=== PATIENT | male | born 1955 | race Caucasian/White ===

== ENCOUNTER → 2018-06-21 | Outpatient (CLI) | payer OTHER ==
--- NOTE | 2018-06-25 17:26 | MR ---
EXAMINATION TYPE: MR brain wo/w con DATE OF EXAM: 06/21/2018 COMPARISON: CT brain Eusebio Forte dated 02/11/2016 HISTORY: Brain lesion TECHNIQUE: Multiplanar, multisequence images of the brain and brainstem is performed without and with IV contras t, utilizing 10 mL intravenous Gadavist . FINDINGS: Craniovertebral junction is normal. The pituitary as visualized is unremarkable. Diffusion-weighted imaging is performed. No suspicious hyperintensity to suggest an acute ischemic ar eas evident There is a hyperintense T2 area within the left centrum semiovale extending from nearly the ventricle to the sulci. This is hypointense on T1-weighted sequences and has some intermediate signal on the i nversion recovery weighted sequences. This is nonenhancing There is increased T2 signal adjacent whic h may be some minimal adjacent edema.. This is estimated to measure 1.4 x 1.1 cm on T2-weighted imagi ng. This has some intermediate internal signal and surrounding low inversion recovery signal which c ould be some hemosiderin staining. This was not present on the comparison CT of 02/11/2016. Exam was compared to CT dated 02/11/2016. No prior MRIs and no additional CT examinations were able to be loca brenden. Addendum report can be issued if additional imaging has been performed and can be provided for c omparison. Additionally, there is an enhancing lesion in the extra-axial space of the right parietal lobe which may be an old meningioma present previously. This has some enhancement. No additional suspicious enhancement is evident. No additional abnormal lesions are identified. Ventricles and sulci appear appropriate for the patient age. IMPRESSION: 1. New lesion in the left centrum semiovale extending towards the sulcus at the vertex. This could be old posttraumatic effect such as hemorrhage. Neoplasm, such as ganglioglioma could be considered. Significant Vasogenic edema to suggest more aggressive tumors are not identified. Recommend CT brain to evaluate for calcification. 2. Probable old meningioma, present on CT examination, right vertex.
== END | disposition home or self-care (01) ==
LOC: RADMRIMAIN 19:46
PROVIDERS: ATTEND Family Medicine
DX: G93.9 Disorder of brain, unspecified (principal); G93.6 Cerebral edema
CPT/HCPCS: 82565; 84520; 70553; 36415; A9581

== ENCOUNTER → 2018-07-12 | Outpatient (CLI) | payer OTHER ==
--- NOTE | 2018-07-12 14:51 | CT ---
EXAMINATION TYPE: CT brain w con DATE OF EXAM: 07/12/2018 COMPARISON: MRI brain June 21, 2018. Outside CT brain February 11, 2016 HISTORY: Disorder of brain, unspecified per order. CT DLP: 1329 mGycm. Automated Exposure Control for Dose Reduction was Utilized. CONTRAST: CT scan of the head is performed with IV Contrast, patient injected with 100 ml mL of Isovue 300. FINDINGS: There is redemonstration of homogeneous enhancing 1.2 cm high right frontal meningioma axial image 54 not significantly changed from prior CT. Area of concern on recent MRI left posterior frontal lobe c entrum semiovale shows no calcification, area of focal encephalomalacia is felt present this is new f rom the 2016 CT. No midline shift is seen. Ventricles and sulci are within normal limits in size. No new enhancing masses are present. Globes are intact bilaterally. Mild mucosal thickening anterior eth moid sinuses bilaterally is seen. IMPRESSION: Area of concern on recent MRI is felt to reflect focal area of encephalomalacia or old infarct.
== END | disposition home or self-care (01) ==
LOC: RADCTMAIN 14:05
PROVIDERS: ATTEND Family Medicine
DX: G93.9 Disorder of brain, unspecified (principal)
CPT/HCPCS: 70460; Q9967

== ENCOUNTER → 2018-09-30 | Outpatient (CLI) | payer OTHER ==
--- NOTE | 2018-09-30 15:29 | ECHOF ---
Referral Reason:Z86.73 HX OF STROKE MEASUREMENTS -------- HEIGHT: 182.9 cm WEIGHT: 111.1 kg BP: IVSd: 1.5 cm (0.6 - 1.1) LVIDd: 4.5 cm (3.9 - 5.3) LVPWd: 1.1 cm (0.6 - 1.1) IVSs: 1.5 cm LVIDs: 3.1 cm LVPWs: 1.6 cm LA Diam: 3.7 cm (2.7 - 3.8) RVIDd: 2.7 cm (< 3.3) EPSS: 0.4 cm MV E Jon: 0.43 m/s MV DecT: 289 ms MV A Jon: 0.65 m/s MV E/A Ratio: 0.65 RAP: 5.00 mmHg RVSP: 14.56 mmHg MV EF SLOPE: 104.92 mm/s (70 - 150) MV EXCURSION: 19.44 mm (> 18.000) FINDINGS -------- Sinus rhythm. This was a techncally difficult study with suboptimal views, , Definity utilized for enhancement of i mages. The left ventricular size is normal. There is moderate concentric left ventricular hypertrophy. O verall left ventricular systolic function is normal with, an EF between 55 - 60 %. The right ventricle is normal in size. The left atrial size is normal. The right atrial size is normal. Lumason used The aortic valve is trileaflet, and appears structurally normal. No aortic stenosis or regurgitation. Mild mitral annular calcification present. Mild mitral regurgitation is present. Mild tricuspid regurgitation present. There is no evidence of pulmonary hypertension. The right v entricular systolic pressure, as measured by Doppler, is 14.56mmHg. The pulmonic valve was not well visualized. The aortic root size is normal. There is no pericardial effusion. CONCLUSIONS -------- 1. This was a techncally difficult study with suboptimal views, , Definity utilized for enhancement o f images. 2. The left ventricular size is normal. 3. There is moderate concentric left ventricular hypertrophy. 4. Overall left ventricular systolic function is normal with, an EF between 55 - 60 %. 5. The right ventricle is normal in size. 6. The left atrial size is normal. 7. The right atrial size is normal. 8. Lumason used 9. The aortic valve is trileaflet, and appears structurally normal. No aortic stenosis or regurgitati on. 10. Mild mitral annular calcification present. 11. Mild mitral regurgitation is present. 12. Mild tricuspid regurgitation present. 13. There is no evidence of pulmonary hypertension. 14. The right ventricular systolic pressure, as measured by Doppler, is 14.56mmHg. 15. The pulmonic valve was not well visualized. 16. The aortic root size is normal. 17. There is no pericardial effusion. ULTRASOUND TECHNOL: Berta Flores RDCS
== END | disposition home or self-care (01) ==
LOC: RADECHMAIN 08:37
PROVIDERS: ATTEND Psychiatry & Neurology Neurology
DX: I08.1 Rheumatic disorders of both mitral and tricuspid valves (principal); Z86.73 Personal history of transient ischemic attack (TIA), and cerebral infarction without residual deficits
CPT/HCPCS: C8929; Q9950; 93306

== ENCOUNTER → 2018-12-18 | Outpatient (CLI) | payer OTHER | END | disposition home or self-care (01) | LOC: RADNMMAIN 09:16 | PROVIDERS: ATTEND Family Medicine | DX: Z53.9 Procedure and treatment not carried out, unspecified reason (principal) ==

== ENCOUNTER → 2018-12-26 | Outpatient (CLI) | payer OTHER ==
[~2018-12-26] MED LIST: DOBUTamine DRIP for NUC MED 500 MG in DEXTROSE/WATER 1 250ML.BAG IV ONE
--- NOTE | 2018-12-26 13:37 | ECHOS ---
STRESS ECHOCARDIOGRAM DOBUTAMINE STRESS ECHO DATE OF SERVICE: 12/26/2018 INDICATIONS: Suboptimal SE. MEDICATIONS: BASELINE HEART RATE: 65 BASELINE BLOOD PRESSURE: 153/79 MAXIMUM HEART RATE: 128 MAXIMUM BLOOD PRESSURE: 119/36 85% MPHR: 135 100% MPHR: 159 METS: MAXIMUM STAGE REACHED: TOTAL EXERCISE TIME: CLINICAL INFORMATION: A dobutamine stress echocardiographic study was performed. Peak heart rate of 128 was achieved. Maximum blood pressure of 119/36 mmHg was noted. The resting EKG shows normal sinus rhythm with normal FL interval and QRS duration and normal ST-T waves. No ST-segment depression suggestive of ischemia is noted. The baseline echocardiographic images reveal normal left ventricular chamber size with normal left ventricular systolic function. At the peak dose of dobutamine infusion, normal increase in the wall thickness and contractility is noted. FINAL IMPRESSION: This dobutamine stress echocardiographic study is negative for stress-induced ischemia. EKG portion of the stress test is not suggestive of ischemia. MMODL / IJN: [id number] /
== END | disposition home or self-care (01) ==
LOC: RADNMMAIN 09:23
PROVIDERS: ATTEND Family Medicine
DX: R07.89 Other chest pain (principal)
CPT/HCPCS: C8930; J1250; Q9950; 93351

== ENCOUNTER → 2019-01-28 | Outpatient (CLI) | payer OTHER | LOC: CPPFTMAIN 13:21 | PROVIDERS: ATTEND Family Medicine | DX: R06.02 Shortness of breath (principal) | CPT/HCPCS: 94060; 94726; 94729 ==

== ENCOUNTER 2019-03-28 23:49 | Emergency (ER) | payer MEDICARE, OTHER ==
[2019-03-29 00:09] VITALS: RESP 18; TEMP 97.1
--- NOTE | 2019-03-29 00:49 | ED ---
Abdominal Pain HPI - General Chief Complaint: Abdominal Pain Stated Complaint: Abdominal Pain Time Seen by Provider: 03/28/19 23:56 Source: patient, EMS Mode of arrival: EMS - History of Present Illness MD Complaint: abdominal pain Onset/Timin -: hour(s) Location: diffuse Radiation: none Migration to: no migration Severity: moderate Quality: other (Squeezing) Consistency: constant Improves With: nothing Worsens With: nothing Associated Symptoms: denies other symptoms - Related Data Previous Rx's Medication Instructions Recorded Dicyclomine [Bentyl] 20 mg PO QID #15 tablet 03/29/19 Allergies Allergy/AdvReac Type Severity Reaction Status Date / Time acetaminophen [From [facility]] Allergy Nausea & Verified 03/29/19 00:05 Vomiting hydrocodone [From [facility]] Allergy Nausea & Verified 03/29/19 00:05 Vomiting Review of Systems ROS Statement: Those systems with pertinent positive or pertinent negative responses have been documented in the HPI. ROS Other: All systems not noted in ROS Statement are negative. Constitutional: Denies: fever, chills Respiratory: Denies: cough, dyspnea Cardiovascular: Denies: chest pain, palpitations, edema Gastrointestinal: Reports: abdominal pain. Denies: nausea, vomiting, diarrhea, constipation, melena, hematochezia Genitourinary: Denies: dysuria, hematuria, testicular pain, testicular mass Musculoskeletal: Denies: back pain Skin: Denies: rash Past Medical History Past Medical History: Hypertension History of Any Multi-Drug Resistant Organisms: None Reported Past Surgical History: Orthopedic Surgery Additional Past Surgical History / Comment(s): Spleenectomy Past Psychological History: Depression Smoking Status: Current every day smoker Past Alcohol Use History: Occasional Past Drug Use History: None Reported General Exam General appearance: alert, in no apparent distress Head exam: Present: atraumatic, normocephalic Eye exam: Present: normal appearance. Absent: scleral icterus, conjunctival injection Respiratory exam: Present: normal lung sounds bilaterally. Absent: respiratory distress, wheezes, rales, rhonchi, stridor Cardiovascular Exam: Present: regular rate, normal rhythm, normal heart sounds. Absent: systolic murmur, diastolic murmur, rubs, gallop GI/Abdominal exam: Present: soft. Absent: distended, tenderness, guarding, rebound, rigid, mass Extremities exam: Present: normal inspection, normal capillary refill. Absent: pedal edema, calf tenderness Back exam: Present: normal inspection. Absent: CVA tenderness (R), CVA tenderness (L) Neurological exam: Present: alert Skin exam: Present: warm, dry, intact, normal color. Absent: rash Course Vital Signs 03/29/19 00:00 Temperature 97.1 F L Pulse Rate 69 Respiratory 18 Rate Blood Pressure 141/91 O2 Sat by Pulse 95 Oximetry Medical Decision Making - Lab Data Result diagrams: 03/29/19 01:06 03/29/19 01:06 Lab Results 03/29/19 03/29/19 03/29/19 Range/Units 01:06 01:06 01:06 WBC 12.8 H (3.8-10.6) k/uL RBC 4.03 L (4.30-5.90) m/uL Hgb 13.0 (13.0-17.5) gm/dL Hct 40.0 (39.0-53.0) % MCV 99.3 (80.0-100.0) fL MCH 32.2 (25.0-35.0) pg MCHC 32.5 (31.0-37.0) g/dL RDW 14.3 (11.5-15.5) % Plt Count 241 (150-450) k/uL Neutrophils % 46 % Lymphocytes % 36 % Monocytes % 7 % Eosinophils % 6 % Basophils % 1 % Neutrophils # 5.9 (1.3-7.7) k/uL Lymphocytes # 4.7 (1.0-4.8) k/uL Monocytes # 0.9 (0-1.0) k/uL Eosinophils # 0.7 (0-0.7) k/uL Basophils # 0.1 (0-0.2) k/uL Macrocytosis Slight Sodium 141 (137-145) mmol/L Potassium 4.4 (3.5-5.1) mmol/L Chloride 111 H (98-107) mmol/L Carbon Dioxide 24 (22-30) mmol/L Anion Gap 6 mmol/L BUN 21 H (9-20) mg/dL Creatinine 1.11 (0.66-1.25) mg/dL Est GFR (CKD-EPI)AfAm 83 (>60 ml/min/1.73 sqM) Est GFR (CKD-EPI)NonAf 72 (>60 ml/min/1.73 sqM) Glucose 114 H (74-99) mg/dL Plasma Lactic Acid Issac 1.0 (0.7-2.0) mmol/L Calcium 9.1 (8.4-10.2) mg/dL Total Bilirubin 0.3 (0.2-1.3) mg/dL AST 24 (17-59) U/L ALT 49 (21-72) U/L Alkaline Phosphatase 70 (38-126) U/L Total Protein 6.2 L (6.3-8.2) g/dL Albumin 3.6 (3.5-5.0) g/dL Amylase 49 (30-110) U/L Lipase 50 (23-300) U/L Urine Color Urine Appearance (Clear) Urine pH (5.0-8.0) Ur Specific Primrose (1.001-1.035) Urine Protein (Negative) Urine Glucose (UA) (Negative) Urine Ketones (Negative) Urine Blood (Negative) Urine Nitrite (Negative) Urine Bilirubin (Negative) Urine Urobilinogen (<2.0) mg/dL Ur Leukocyte Esterase (Negative) 03/29/19 Range/Units 02:00 WBC (3.8-10.6) k/uL RBC (4.30-5.90) m/uL Hgb (13.0-17.5) gm/dL Hct (39.0-53.0) % MCV (80.0-100.0) fL MCH (25.0-35.0) pg MCHC (31.0-37.0) g/dL RDW (11.5-15.5) % Plt Count (150-450) k/uL Neutrophils % % Lymphocytes % % Monocytes % % Eosinophils % % Basophils % % Neutrophils # (1.3-7.7) k/uL Lymphocytes # (1.0-4.8) k/uL Monocytes # (0-1.0) k/uL Eosinophils # (0-0.7) k/uL Basophils # (0-0.2) k/uL Macrocytosis Sodium (137-145) mmol/L Potassium (3.5-5.1) mmol/L Chloride (98-107) mmol/L Carbon Dioxide (22-30) mmol/L Anion Gap mmol/L BUN (9-20) mg/dL Creatinine (0.66-1.25) mg/dL Est GFR (CKD-EPI)AfAm (>60 ml/min/1.73 sqM) Est GFR (CKD-EPI)NonAf (>60 ml/min/1.73 sqM) Glucose (74-99) mg/dL Plasma Lactic Acid Issac (0.7-2.0) mmol/L Calcium (8.4-10.2) mg/dL Total Bilirubin (0.2-1.3) mg/dL AST (17-59) U/L ALT (21-72) U/L Alkaline Phosphatase (38-126) U/L Total Protein (6.3-8.2) g/dL Albumin (3.5-5.0) g/dL Amylase (30-110) U/L Lipase (23-300) U/L Urine Color Yellow Urine Appearance Clear (Clear) Urine pH 5.5 (5.0-8.0) Ur Specific Primrose 1.023 (1.001-1.035) Urine Protein Negative (Negative) Urine Glucose (UA) Negative (Negative) Urine Ketones Negative (Negative) Urine Blood Negative (Negative) Urine Nitrite Negative (Negative) Urine Bilirubin Negative (Negative) Urine Urobilinogen <2.0 (<2.0) mg/dL Ur Leukocyte Esterase Negative (Negative) Disposition Clinical Impression: Abdominal pain Disposition: HOME SELF-CARE Condition: Good Instructions (If sedation given, give patient instructions): Abdominal Pain (ED) Prescriptions: Dicyclomine [Bentyl] 20 mg PO QID #15 tablet Is patient prescribed a controlled substance at d/c from ED?: No Referrals: Bobby Lawler MD [Primary Care Provider] - 1-2 days Bre Gunter MD [STAFF PHYSICIAN] - 1-2 days
[2019-03-29 01:16] LABS: Basophils # (A) 0.1 k/uL (0-0.2); Basophils % (A) 1 %; Eosinophils # (A) 0.7 k/uL (0-0.7); Eosinophils % (A) 6 %; Lymphocytes # (A) 4.7 k/uL (1.0-4.8); Lymphocytes % (A) 36 %; MCH 32.2 pg (25.0-35.0); MCHC 32.5 g/dL (31.0-37.0); MCV 99.3 fL (80.0-100.0); Macrocytosis Slight; Mean Platelet Volume 6.9; Monocytes # (A) 0.9 k/uL (0-1.0); Monocytes % (A) 7 %; Neutrophils # (A) 5.9 k/uL (1.3-7.7); Neutrophils % (A) 46 %; Platelet Count 241 k/uL (150-450); RBC 4.03 m/uL (4.30-5.90); RDW 14.3 % (11.5-15.5); WBC 12.8 k/uL (3.8-10.6)
[2019-03-29 01:34] LABS: Albumin 3.6 g/dL (3.5-5.0); Calcium 9.1 mg/dL (8.4-10.2); Potassium 4.4 mmol/L (3.5-5.1); Total Bilirubin 0.3 mg/dL (0.2-1.3); Total Protein 6.2 g/dL (6.3-8.2)
[2019-03-29 02:16] LABS: Appearance,Urine Clear (Clear); Bilirubin,Urine Negative (Negative); Blood,Urine Negative (Negative); Color,Urine Yellow; Glucose,Urine (UA) Negative (Negative); Ketones,Urine Negative (Negative); Leukocyte Esterase,Urine Negative (Negative); Nitrite,Urine Negative (Negative); PH, Urine 5.5 (5.0-8.0); Protein,Urine Negative (Negative); Specific Gravity,Urine 1.023 (1.001-1.035); Urobilinogen,Urine <2.0 mg/dL (<2.0)
--- NOTE | 2019-03-29 02:18 | CT ---
INDICATION: Abdominal pain TECHNIQUE: CT acquisition is performed through the abdomen and pelvis. Coronal and sagittal reformatted images are provided. No IV contrast is administered. DOSE INFORMATION: DLP 810.8 mGy-cm. This CT exam was performed using one or more of the following dose reduction techniques: automated exposure control, adjustment of the mA and/or kV according to patient size, and/or use of iterative reconstruction technique. COMPARISON: None. FINDINGS: There is linear subsegmental atelectasis at the left lung base. The unenhanced appearance of the liver, gallbladder, pancreas, and adrenal glands is unremarkable. The spleen is absent; a few small splenules are noted in the splenic fossa. The kidneys are similar in size and contour. There is no hydronephrosis. There are bilateral renal cysts measuring up to 1.3 cm bilaterally. Aorta and IVC are normal. There is no adenopathy. The appendix is normal. There are no obstructive or inflammatory changes of the bowel. Urinary bladder and prostate are unremarkable. There are fat-containing inguinal hernias bilaterally. There are no acute osseous findings. Angulation deformity of the coccyx suggests old fracture. IMPRESSION: 1. No evidence of acute or inflammatory process abdomen or pelvis.
[2019-03-29] MEDS ORDERED: DICYCLOMINE 10 MG/ML 2 ML AMP IM STA (04:30)
[2019-03-29 05:23] VITALS: BP 156/84; PULSE 59
== END 2019-03-29 05:20 | disposition home or self-care (01) ==
LOC: EC 23:49
DX: R10.84 Generalized abdominal pain (principal); F17.200 Nicotine dependence, unspecified, uncomplicated; Z88.5 Allergy status to narcotic agent; Z88.6 Allergy status to analgesic agent
CPT/HCPCS: 36415; 80053; 82150; 83605; 83690; 85025; 81003; 74176; 99284; 96372; J0500

== ENCOUNTER 2019-06-04 09:20 | Day surgery (SDC) | payer MEDICARE, OTHER ==
[2019-06-03 09:58] VITALS: BMI 31.6
[~2019-06-04 09:20] MED LIST changes: -DOBUTamine DRIP for NUC MED 500 MG in DEXTROSE/WATER 1 250ML.BAG IV ONE; +LACTATED RINGERS 1,000 ML IV SCH
[2019-06-04] MEDS ORDERED: LIDOCAINE 1% 20 ML VIAL (10MG/ML) FOR IV START INTRADERMA ONE (10:40)
[2019-06-04 10:42] VITALS: RESP 16; TEMP 97.1
[2019-06-04] MEDS ORDERED: PROPOFOL 10 MG/ML 20 ML VIAL IV ONE (11:00)
--- NOTE | 2019-06-04 11:25 | P.PCN ---
Date of Procedure: 06/04/19 Procedure(s) Performed: Brief history: Patient is a pleasant 63-year-old white male, scheduled for an elective upper endoscopy as well as colonoscopy as a part of evaluation of GERD/intermittent dysphagia to solids and prior history of colon polyps Procedure performed: Esophagogastroduodenoscopy with biopsy Colonoscopy with snare polypectomy Preoperative diagnosis: GERD/intermittent dysphagia to solids History of colon polyps Anesthesia: MAC Procedure: After informed consent was obtained from the patient was brought into the endoscopy unit and IV sedation was administered by anesthesia under continuous monitoring. Initially upper endoscopy was done. The Olympus GF 160 video endoscope was inserted inserted into the mouth and esophagus intubated without any difficulty and was gradually advanced into the stomach and duodenum and carefully examined. The bulb and second part of the duodenum appeared normal. The scope was then withdrawn into the stomach adequately insufflated with air and upon careful examination the antrum had mild gastritis. Biopsies were done from this area. The body, cardia and fundus appeared normal. The scope was then withdrawn into the esophagus. small sliding Hernia Noted. The GE junction was located at 40 cm to the incisors. It appeared regular but there was a short segment of Rowan's esophagus with with a tongue of Rowan's appearing mucosa extending 5 mm proximal to the GE junction. This was biopsied.. Rest of the esophagus appeared normal. Patient tolerated the procedure well. At this time the patient continued to remain sedation. Initial digital rectal examination was normal. Olympus CF 160 video colonoscope was then inserted into the rectum and gradually advanced to the cecum without any difficulty. Careful examination was performed as the scope was gradually being withdrawn. The prep was excellent. The cecum, ascending colon appeared normal. In the transverse colon there was a 2-3 mm polyp that was removed by snare polypectomy. Rest of the, transverse colon, descending colon, sigmoid colon and rectum appeared n ormal. Scattered diverticulosis seen. Retroflexion was performed in the rectum and no lesions were noted. Patient tolerated the procedure well. Impression: 1. 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 Colonoscopy revealed 3-4 mm transverse colon polyp status post polypectomy, scattered sigmoid diverticulosis. Recommendations: Findings of this examination were discussed with the patient as well as his family. He was advised to follow with the biopsy results. He will continue with Prilosec 20 mg daily and Pepcid as needed and follow antireflux measures. If the biopsy confirms the presence of Rowan's esophagus he can have a repeat upper endoscopy in 2 years. He can have a repeat colonoscopy in 5 years
[2019-06-04 12:18] VITALS: BP 142/82; PULSE 60
--- NOTE | 2019-06-09 13:53 | CDI ---
Outpatient Documentation Clarification Form Date: 06/09/19 CDS/Crankshaft Balancer Name: Lisbet Beck Phone: If any questions, call [employer] at [phone] Patient Name: Jacob Pollack Admit Date: 06/04/19 Discharge Date: 06/04/19 ATTENTION: The [facility] Coding Staff appreciate your assistance in clarifying documentation. Please respond to the clarification below the line at the bottom and electronically sign. The [facility] Coding staff will review the response and follow-up if needed. Please note: Queries are made part of the Legal Health Record. If you have any questions, please contact the [employer] Vice Principal. Dear Dr. Gunter, Please clarify the presence of a polyp in the transverse colon and if a specimen was sent to pathology. The procedure note documents that a snare polypectomy was performed in the transverse colon. The pathology report does not reflect that a specimen was actually sent. There is no pathology for the colon polyp. Please clarify Thank you for your kind consideration. Polyp was removed from the transverse colon, using snare polypectomy, however it was not retreived during the procedure to be sent to pathology, Bre Gunter MTDD
== END 2019-06-04 12:19 | disposition home or self-care (01) ==
LOC: ORWHC2ENDO 09:20
PROVIDERS: ATTEND Internal Medicine Gastroenterology
DX: K29.50 Unspecified chronic gastritis without bleeding (principal); K22.70 Barrett's esophagus without dysplasia; K63.5 Polyp of colon; K44.9 Diaphragmatic hernia without obstruction or gangrene; R13.10 Dysphagia, unspecified; K57.30 Diverticulosis of large intestine without perforation or abscess without bleeding; K21.9 Gastro-esophageal reflux disease without esophagitis; Z80.1 Family history of malignant neoplasm of trachea, bronchus and lung; J44.9 Chronic obstructive pulmonary disease, unspecified; Z86.010 Personal history of colon polyps; E29.1 Testicular hypofunction; F17.200 Nicotine dependence, unspecified, uncomplicated; G47.00 Insomnia, unspecified; I10 Essential (primary) hypertension; N40.0 Benign prostatic hyperplasia without lower urinary tract symptoms; N52.9 Male erectile dysfunction, unspecified; Z86.73 Personal history of transient ischemic attack (TIA), and cerebral infarction without residual deficits; Z90.81 Acquired absence of spleen; Z79.1 Long term (current) use of non-steroidal anti-inflammatories (NSAID); Z79.899 Other long term (current) drug therapy; Z79.82 Long term (current) use of aspirin; Z79.51 Long term (current) use of inhaled steroids; Z88.5 Allergy status to narcotic agent
CPT/HCPCS: 88305; 45385; 43239; J2704

== ENCOUNTER 2022-10-20 07:51 | Day surgery (SDC) | payer MEDICARE, OTHER ==
[2022-10-18 14:21] VITALS: BMI 32.1
[2022-10-20] MEDS ORDERED: LACTATED RINGERS 1,000 ML IV SCH (08:02)
[2022-10-20 08:20] VITALS: TEMP 97.2
[2022-10-20] MEDS ORDERED: LIDOCAINE 2% INJ 20 MG/ML (2 ML VIAL) ONE (09:23)
[2022-10-20] MEDS ORDERED: PROPOFOL 10 MG/ML 20 ML VIAL IV ONE (09:23)
--- NOTE | 2022-10-20 09:49 | P.PCN ---
Date of Procedure: 10/20/22 Procedure(s) Performed: Brief history: Patient is a pleasant 67-year-old white male scheduled for an elective upper endoscopy as well as colonoscopy as a part of evaluation of GERD/Rowan's esophagus and intermittent rectal bleeding Procedure performed: Esophagogastroduodenoscopy with biopsy Colonoscopy with snare polypectomy. Preoperative diagnosis: GERD/Rowan's esophagus/intermittent rectal bleeding Anesthesia: MAC Procedure: After informed consent was obtained from the patient was brought into the endoscopy unit and IV sedation was administered by anesthesia under continuous monitoring. Initially upper endoscopy was done. The Olympus GF 160 video endoscope was inserted inserted into the mouth and esophagus intubated without any difficulty and was gradually advanced into the stomach and duodenum and carefully examined. The bulb and second part of the duodenum appeared normal. The scope was then withdrawn into the stomach adequately insufflated with air and upon careful examination the antrum had mild antral gastritis and biopsies were done from this area. Mucosa of the body, cardia and fundus appeared normal. The scope was then withdrawn into the esophagus. The GE junction was located at 40 cm to the incisors. Small hiatal hernia noted. There was a short segment of Rowan's esophagus extending 3 mm proximal to the GE junction which was biopsied. Rest of the esophagus appeared normal. Patient tolerated the procedure well. At this time the patient continued to remain sedation. Initial digital rectal examination was normal. Olympus CF 160 video colonoscope was then inserted into the rectum and gradually advanced to the cecum without any difficulty. Careful examination was performed as the scope was gradually being withdrawn. The prep was excellent. The cecum, ascending colon, appeared normal. The transverse colon there was a 5 mm sessile polyp removed by snare polypectomy. In the descending colon there was another 5 mm polyp removed by snare polypectomy. transverse colon, descending colon, sigmoid colon and rectum appeared normal. Retroflexion was performed in the rectum and small internal hemorrhoids were noted. Patient tolerated the procedure well. Impression: 1. Upper endoscopy revealed small hiatal hernia, short segment Rowan's esophagus and mild antral gastritis 2. Colonoscopy revealed 5 mm transverse colon polyp and a 5 mm descending colon polyp status post polypectomy and small internal hemorrhoids Recommendations: Findings of this examination were discussed with the patient as well as his family. He was advised to follow with the biopsy results. If the biopsy confirms the presence of Rowan's esophagus he can have a repeat upper endoscopy in 3 years. He can have a repeat colonoscopy in 5 years because of history of colon polyps
[2022-10-20 09:59] LABS: Glucose,Whole Blood 163 mg/dL (70-110)
[2022-10-20 10:22] VITALS: BP 139/84; PULSE 53; RESP 20
== END 2022-10-20 10:49 | disposition home or self-care (01) ==
LOC: ORWHC2ENDO 07:51
PROVIDERS: ATTEND Internal Medicine Gastroenterology
DX: D12.3 Benign neoplasm of transverse colon (principal); K22.70 Barrett's esophagus without dysplasia; K62.5 Hemorrhage of anus and rectum; K21.9 Gastro-esophageal reflux disease without esophagitis; K44.9 Diaphragmatic hernia without obstruction or gangrene; I10 Essential (primary) hypertension; E78.5 Hyperlipidemia, unspecified; K29.50 Unspecified chronic gastritis without bleeding; F41.9 Anxiety disorder, unspecified; F32.A Depression, unspecified; Z87.19 Personal history of other diseases of the digestive system; Z88.5 Allergy status to narcotic agent; Z87.891 Personal history of nicotine dependence
CPT/HCPCS: 88305; 45385; 43239; J2704; J2001

== ENCOUNTER → 2025-01-28 | Day surgery (SDC) | payer MEDICARE ==
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
[~2025-01-28] MED LIST changes: +HYDROmorphone 0.5 MG/0.5 ML SYRINGE IVP PRN; -LACTATED RINGERS 1,000 ML IV SCH; +LIDOCAINE 1% INJ 10MG/ML (20 ML MDV) ONE; +MIDAZOLAM 2 MG/2 ML VIAL ONE; +PHENYLEPHRINE 10 MG/ML VIAL ONE; +PROPOFOL 10 MG/ML 20 ML VIAL IV ONE; +SUCCINYLCHOLINE CHLORIDE 200 MG/10 ML VIAL IV ONE; +fentaNYL (PF) 50 MCG/ML 2 ML AMP IV PRN; +fentaNYL (PF) 50 MCG/ML 2 ML AMP ONE
[2025-01-28] MEDS: LACTATED RINGERS 1,000 ML IV SCH (07:00)
[2025-01-28] MEDS: IV FLUID CONTINUATION 1,000 ML IV ONE (07:00)
[2025-01-28] MEDS: LIDOCAINE 1% (10MG/ML) FOR IV START INTRADERMA STA (07:00)
[2025-01-28] MEDS: ONDANSETRON 4 MG/2 ML VIAL IVP ONE (07:12)
[2025-01-28] MEDS: DEXAMETHASONE SOD PHOSPHATE 4 MG/ML 1 ML VIAL IV ONE (07:12)
[2025-01-28 07:26] LABS: Glucose,Whole Blood 119 mg/dL (70-110)
[2025-01-28] MEDS: AMPICILLIN 1,000 MG in SODIUM CHLORIDE 0.9% 50 ML IVPB PRN (07:30)
[2025-01-28] MEDS: GENTAMICIN 140 MG in SODIUM CHLORIDE 0.9% 100 ML IVPB PRN (07:48)
--- NOTE | 2025-01-28 08:10 | P.OP ---
Date of Procedure: 01/28/25 Preoperative Diagnosis: Bladder neck contracture Postoperative Diagnosis: Bladder neck contracture plus urethral stricture Procedure(s) Performed: Cystoscopy, direct vision internal urethrotomy, direct vision incision of bladder neck contracture Anesthesia: JAZ Surgeon: Alberto Barclay Estimated Blood Loss (ml): 0 Pathology: none sent Condition: stable Disposition: PACU Indications for Procedure: The patient is 69. He underwent a TURP 15 months ago. He has had problems urinating in the last couple of months. Endoscopy in the office identified a soft stricture in the bulbar urethra and a tight bladder neck contracture he comes for incision Description of Procedure: Patient brought to the operating suite. Given a general anesthetic. Placed lithotomy position with a sterile prep and drape. The urethra was intubated with the direct vision urethrotome. I passed send in the mid bulbar urethra and there is a short stricture. This is cut at 12:00 back to healthy tissue. This allows me to pass into the prostate. The prostate is been previously resected and there is a tight bladder neck contracture. With a cold knife the bladder neck contracture is cut in 4 quadrants 12 3 6 and 9. Is cut back to healthy tissue. It opens up the bladder neck nicely. I passed into the bladder and inspect the bladder and it is normal visually. I pulled back into the prostate and the bladder neck is wide open. I removed the urethrotome and passed a 16 [place] coud tip catheter into the bladder with clear urine return. The patient was awakened and returned to cover in good condition. He tolerated procedure well. Blood loss is negligible.
[2025-01-28 08:20] VITALS: TEMP 96.8
[2025-01-28 08:25] LABS: Glucose,Whole Blood 115 mg/dL (70-110)
[2025-01-28 09:58] VITALS: BP 130/79; PULSE 69; RESP 17
== END | disposition home or self-care (01) ==
LOC: OR 06:08
PROVIDERS: ATTEND Urology
DX: N32.0 Bladder-neck obstruction (principal); N35.912 Unspecified bulbous urethral stricture, male; E78.5 Hyperlipidemia, unspecified; I67.9 Cerebrovascular disease, unspecified; I10 Essential (primary) hypertension; J44.9 Chronic obstructive pulmonary disease, unspecified; K21.9 Gastro-esophageal reflux disease without esophagitis; M19.90 Unspecified osteoarthritis, unspecified site; Z89.511 Acquired absence of right leg below knee; Z90.79 Acquired absence of other genital organ(s); Z87.891 Personal history of nicotine dependence; Z88.5 Allergy status to narcotic agent; Z79.1 Long term (current) use of non-steroidal anti-inflammatories (NSAID); Z79.02 Long term (current) use of antithrombotics/antiplatelets; Z79.51 Long term (current) use of inhaled steroids; Z79.899 Other long term (current) drug therapy
CPT/HCPCS: 52276; J2250; J0330; J1100; J2405; J2003; J3010; J1580; J0290; J2704; J2371